=== PATIENT | male | born 1980 | race Caucasian/White ===

== ENCOUNTER 2018-02-20 01:27 | Emergency (ER) | payer SELFPAY ==
[~2018-02-20] VITALS: Ht 177.8 cm; Wt 71.4 kg
[~2018-02-20 01:27] MED LIST: LEVAQUIN 5500 MG/TA1 PO; LORTAB 5/500 501 TAB PO; MECLIZINE25 MG PO; NO HOME MEDICATIONS; PERMETHRIN 5% TOP; PHENERGAN 25 TA25 MG PO; PREDNISONE20 MG PO; PROAIR HFA0.09 MG/AC IH; TUSS PO
[2018-02-20 01:33] VITALS: TEMP 97.1
[2018-02-20 03:20] VITALS: BP 120/95; PULSE 73
== END 2018-02-20 03:20 | disposition home or self-care (01) ==
LOC: COL.ER 01:27
DX: M25.511 Pain in right shoulder (principal); F17.210 Nicotine dependence, cigarettes, uncomplicated; Z88.0 Allergy status to penicillin
CPT/HCPCS: J1885; J2360

== ENCOUNTER 2018-02-27 04:32 | Emergency (ER) | payer SELFPAY ==
[~2018-02-27] VITALS: Ht 177.8 cm; Wt 72.7 kg
[2018-02-27 04:39] VITALS: TEMP 97.3
[2018-02-27] MEDS ORDERED: FLEXERIL 1010 MG/TAB PO (05:51)
[2018-02-27] MEDS ORDERED: MEDROL 4MG DOSPA4 MG PO (05:51)
[2018-02-27 06:16] VITALS: BP 151/106
[2018-02-27 06:31] VITALS: PULSE 70
== END 2018-02-27 06:33 | disposition home or self-care (01) ==
LOC: COL.ER 04:32
DX: M54.12 Radiculopathy, cervical region (principal); F17.210 Nicotine dependence, cigarettes, uncomplicated
CPT/HCPCS: J7512

== ENCOUNTER 2018-07-29 08:50 | Emergency (ER) | payer SELFPAY ==
[~2018-07-29] VITALS: Ht 180.3 cm; Wt 72.7 kg
[~2018-07-29 08:50] MED LIST changes: +FLEXERIL 1010 MG/TAB PO; +MEDROL 4MG DOSPA4 MG PO
[2018-07-29 08:54] VITALS: BP 169/104; PULSE 76; TEMP 98.1
[2018-07-29] MEDS ORDERED: PROAIR HFA0.09 MG/AC IH (09:08)
[2018-07-29] MEDS ORDERED: ZITHROMAX Z PA250 MG PO (09:08)
[2018-07-29] MEDS ORDERED: TESSALON P100 MG/CAP PO (09:08)
== END 2018-07-29 09:30 | disposition home or self-care (01) ==
LOC: COL.ER 08:50
DX: J20.9 Acute bronchitis, unspecified (principal); F17.210 Nicotine dependence, cigarettes, uncomplicated

== ENCOUNTER 2018-09-30 02:01 | Emergency (ER) | payer SELFPAY ==
[~2018-09-30] VITALS: Ht 180.3 cm; Wt 75.5 kg
[~2018-09-30 02:01] MED LIST changes: +TESSALON P100 MG/CAP PO; +ZITHROMAX Z PA250 MG PO
[2018-09-30 02:06] VITALS: TEMP 98.3
[2018-09-30] MEDS ORDERED: TESSALON P100 MG/CAP PO (02:21)
[2018-09-30] MEDS ORDERED: MEDROL 4MG DOSPA4 MG PO (02:21)
[2018-09-30] MEDS ORDERED: ZITHROMAX Z PA250 MG PO (02:21)
[2018-09-30 02:37] VITALS: BP 137/107; PULSE 81
== END 2018-09-30 02:48 | disposition home or self-care (01) ==
LOC: COL.ER 02:01
DX: R05 Cough (principal); F17.210 Nicotine dependence, cigarettes, uncomplicated

== ENCOUNTER 2018-12-22 00:50 | Emergency (ER) | payer SELFPAY ==
[~2018-12-22] VITALS: Ht 180.3 cm; Wt 72.7 kg
[2018-12-22 00:53] VITALS: TEMP 98.5
[2018-12-22 02:21] LABS: BASO % 0.3 % (0.0-2.0); EOS # 0.2 (0.0-0.7); EOS % 2.8 % (0-4.0); GRAN # 4.4 (1.4-6.5); GRAN % 77.6 % (42.2-75.2); HEMATOCRIT 44.2 % (42.0-52.0); HEMOGLOBIN 15.8 g/dl (13.5-18.0); LYMPH # 0.7 (1.2-3.4); LYMPH % 12.2 % (20.0-51.0); MEAN CELL VOLUME 91 fl (80.0-100.0); MEAN CORPUSCULAR HEMOGLOBIN 33 pg (27.0-31.0); MEAN CORPUSCULAR HGB CONC 36 g/dl (33.0-37.0); MEAN PLATELET VOLUME 9.1 fl (7.4-10.4); MONO # 0.4 (0.1-0.6); MONO % 6.8 % (1.7-9.3); PLATELET COUNT 189 K/mm3 (130-400); RED BLOOD COUNT 4.86 M/mm3 (4.20-5.60); REDCELL DISTRIBUTION WIDTH-CV 12.6 % (11.5-14.5)
[2018-12-22 02:32] LABS: ALBUMIN 4.7 gm/dL (3.5-5.0); BILIRUBIN,TOTAL 0.9 mg/dL (0.0-1.0); CALCIUM 9.4 mg/dL (8.4-10.2); CREATININE, serum 0.85 mg/dL (0.66-1.25); POTASSIUM 4.1 mmol/L (3.4-5.0); TOTAL PROTEIN 8.2 gm/dL (6.4-8.2)
[2018-12-22 03:37] VITALS: BP 136/103; PULSE 71
== END 2018-12-22 04:00 | disposition home or self-care (01) ==
LOC: COL.ER 00:50
PROVIDERS: Emergency Medicine
DX: R51 Headache (principal); R19.7 Diarrhea, unspecified; F17.210 Nicotine dependence, cigarettes, uncomplicated
CPT/HCPCS: J1200; J2765; J7030

== ENCOUNTER 2019-01-10 14:26 | Emergency (ER) | payer OTHER ==
[~2019-01-10] VITALS: Ht 180.3 cm; Wt 75.8 kg
[2019-01-10 14:31] VITALS: BP 156/107; TEMP 97.2
[2019-01-10] MEDS ORDERED: PREDNISONE20 MG PO (15:05)
[2019-01-10] MEDS ORDERED: PROAIR HFA0.09 MG/AC IH (15:05)
[2019-01-10] MEDS ORDERED: ZITHROMAX Z PA250 MG PO (15:05)
[2019-01-10 15:46] VITALS: PULSE 78
== END 2019-01-10 15:47 | disposition home or self-care (01) ==
LOC: COL.ER 14:26
DX: J20.9 Acute bronchitis, unspecified (principal); Z88.0 Allergy status to penicillin; F17.210 Nicotine dependence, cigarettes, uncomplicated
CPT/HCPCS: J7512

== ENCOUNTER 2019-07-05 16:34 | Emergency (ER) | payer OTHER ==
[~2019-07-05] VITALS: Ht 180.3 cm; Wt 79.5 kg
[2019-07-05 16:35] VITALS: TEMP 97.9
[2019-07-05 17:08] LABS: BASO % 0.4 % (0.0-2.0); EOS # 0.1 (0.0-0.7); EOS % 1.7 % (0-4.0); GRAN # 4.5 (1.4-6.5); GRAN % 63.3 % (42.2-75.2); HEMATOCRIT 42.4 % (42.0-52.0); HEMOGLOBIN 15.4 g/dl (13.5-18.0); LYMPH # 1.8 (1.2-3.4); LYMPH % 25.4 % (20.0-51.0); MEAN CELL VOLUME 87 fl (80.0-100.0); MEAN CORPUSCULAR HEMOGLOBIN 32 pg (27.0-31.0); MEAN CORPUSCULAR HGB CONC 36 g/dl (33.0-37.0); MEAN PLATELET VOLUME 9.3 fl (7.4-10.4); MONO # 0.6 (0.1-0.6); MONO % 8.9 % (1.7-9.3); PLATELET COUNT 248 K/mm3 (130-400); RED BLOOD COUNT 4.86 M/mm3 (4.20-5.60); REDCELL DISTRIBUTION WIDTH-CV 11.8 % (11.5-14.5)
[2019-07-05 17:23] LABS: ALANINE AMINOTRANSFERASE 17 U/L (21-72); ALBUMIN 4.5 gm/dL (3.5-5.0); ALKALINE PHOSPHATASE 32 U/L (50-136); ANION GAP 10 mmol/L (7-16); AST,SGOT 29 U/L (15-37); BILIRUBIN,TOTAL 0.5 mg/dL (0.0-1.0); BLOOD UREA NITROGEN 10 mg/dL (9-20); CALCIUM 9.2 mg/dL (8.4-10.2); CARBON DIOXIDE 23 mmol/L (22-30); CHLORIDE 108 mmol/L (98-107); CREATININE, serum 0.92 (0.66-1.25); GLUCOSE 107 mg/dL (74-106); LIPASE 149 U/L (23-300); SODIUM 142 mmol/L (137-145); TOTAL PROTEIN 7.6 gm/dL (6.4-8.2)
[2019-07-05 17:24] LABS: C-REACTIVE PROTEIN 0.5 mg/dL (0.0-0.9)
[2019-07-05 17:33] LABS: TROPONIN-I < 0.012 ng/mL (0.000-0.035)
[2019-07-05] MEDS ORDERED: LEVAQUIN 5500 MG/TA1 PO (18:14)
[2019-07-05] MEDS ORDERED: PREDNISONE20 MG PO (18:14)
[2019-07-05 19:05] VITALS: BP 113/86; PULSE 77
== END 2019-07-05 19:05 | disposition home or self-care (01) ==
LOC: COL.ER 16:34
PROVIDERS: Emergency Medicine
DX: J45.901 Unspecified asthma with (acute) exacerbation (principal); J18.1 Lobar pneumonia, unspecified organism; F17.210 Nicotine dependence, cigarettes, uncomplicated; Z88.0 Allergy status to penicillin
CPT/HCPCS: J7030; J7512

== ENCOUNTER 2019-07-11 13:48 | Emergency (ER) | payer OTHER ==
[~2019-07-11] VITALS: Ht 180.3 cm; Wt 77.3 kg
[2019-07-11 14:04] VITALS: TEMP 99
[2019-07-11 15:25] VITALS: BP 123/91; PULSE 70
[2019-07-11] MEDS ORDERED: FLEXERIL 1010 MG/TAB PO (15:31)
== END 2019-07-11 15:39 | disposition home or self-care (01) ==
LOC: COL.ER 13:48
DX: R07.89 Other chest pain (principal); F17.210 Nicotine dependence, cigarettes, uncomplicated

== ENCOUNTER 2019-10-15 08:15 | Emergency (ER) | payer OTHER ==
[~2019-10-15] VITALS: Ht 177.8 cm; Wt 77.3 kg
[2019-10-15 08:36] VITALS: BP 135/94; PULSE 83; TEMP 97.9
[2019-10-15] MEDS ORDERED: PROAIR HFA0.09 MG/AC IH (09:38)
== END 2019-10-15 09:56 | disposition home or self-care (01) ==
LOC: COL.ER 08:15
DX: J11.1 Influenza due to unidentified influenza virus with other respiratory manifestations (principal); J45.909 Unspecified asthma, uncomplicated; F17.210 Nicotine dependence, cigarettes, uncomplicated

== ENCOUNTER 2021-02-08 08:44 | Emergency (ER) | payer BC ==
[~2021-02-08] VITALS: Ht 180.3 cm; Wt 73.6 kg
[2021-02-08 08:53] VITALS: TEMP 98
[2021-02-08] MEDS ORDERED: NORCO 325 MG-51 TAB PO (10:59)
[2021-02-08 11:15] VITALS: BP 151/105; PULSE 89
== END 2021-02-08 11:16 | disposition home or self-care (01) ==
LOC: COL.ER 08:44
DX: S22.42XA Multiple fractures of ribs, left side, initial encounter for closed fracture (principal); F17.210 Nicotine dependence, cigarettes, uncomplicated; Z88.0 Allergy status to penicillin; W51.XXXA Accidental striking against or bumped into by another person, initial encounter

== ENCOUNTER 2021-05-06 04:47 | Emergency (ER) | payer BC ==
[~2021-05-06] VITALS: Ht 180.3 cm; Wt 71.8 kg
[~2021-05-06 04:47] MED LIST changes: +NORCO 325 MG-51 TAB PO
[2021-05-06 04:54] VITALS: TEMP 98.7
[2021-05-06 05:15] LABS: BASO % 0.4 % (0.0-2.0); EOS # 0.1 (0.0-0.7); EOS % 1.8 % (0-4.0); GRAN # 4.4 (1.4-6.5); HEMATOCRIT 41.2 % (42.0-52.0); HEMOGLOBIN 14.4 g/dl (13.5-18.0); LYMPH # 1.6 (1.2-3.4); MEAN CELL VOLUME 89 fl (80.0-100.0); MEAN CORPUSCULAR HEMOGLOBIN 31 pg (27.0-31.0); MEAN CORPUSCULAR HGB CONC 35 g/dl (33.0-37.0); MEAN PLATELET VOLUME 9.3 fl (7.4-10.4); MONO # 0.7 (0.1-0.6); MONO % 10.1 % (1.7-9.3); PLATELET COUNT 288 K/mm3 (130-400); RED BLOOD COUNT 4.61 M/mm3 (4.20-5.60); REDCELL DISTRIBUTION WIDTH-CV 11.3 % (11.5-14.5)
[2021-05-06 05:21] LABS: ALBUMIN 4.3 gm/dL (3.5-5.0); BILIRUBIN,TOTAL 0.4 mg/dL (0.0-1.0); CALCIUM 9.6 mg/dL (8.4-10.2); CREATININE, serum 0.7 (0.66-1.25); POTASSIUM 3.8 mmol/L (3.4-5.0)
[2021-05-06] MEDS ORDERED: PROVENTIL0.09 MG/A1 IH (08:01)
[2021-05-06] MEDS ORDERED: BACTROBAN 22GM22 GM TP (08:01)
[2021-05-06] MEDS ORDERED: MUCINEX 60600 MG/TA1 PO (08:01)
[2021-05-06] MEDS ORDERED: ZITHROMAX Z PA250 MG PO (08:01)
[2021-05-06] MEDS ORDERED: PREDNISONE20 MG PO (08:01)
[2021-05-06 08:15] VITALS: BP 142/96; PULSE 92
== END 2021-05-06 08:15 | disposition home or self-care (01) ==
LOC: COL.ER 04:47
PROVIDERS: Emergency Medicine
DX: R05 Cough (principal); R06.02 Shortness of breath; R06.2 Wheezing; M79.10 Myalgia, unspecified site; Z72.0 Tobacco use; Z20.822 Contact with and (suspected) exposure to COVID-19
CPT/HCPCS: J1100; J7030

== ENCOUNTER 2021-07-23 10:48 | Outpatient (RCR) | payer OTHER ==
[~2021-07-23 10:48] MED LIST changes: +BACTROBAN 22GM22 GM TP; +MUCINEX 60600 MG/TA1 PO; +PROVENTIL0.09 MG/A1 IH
== END 2021-10-15 | disposition home or self-care (01) ==
LOC: WSOH
DX: M65.4 Radial styloid tenosynovitis [de Quervain] (principal); F17.210 Nicotine dependence, cigarettes, uncomplicated; Y99.0 Civilian activity done for income or pay
CPT/HCPCS: A6549; J1030

== ENCOUNTER 2021-10-20 05:33 | Emergency (ER) | payer BC ==
[~2021-10-20] VITALS: Ht 180.3 cm; Wt 64.5 kg
[2021-10-20 05:38] VITALS: TEMP 98.1
[2021-10-20 06:50] VITALS: BP 158/99; PULSE 90
== END 2021-10-20 06:50 | disposition home or self-care (01) ==
LOC: COL.ER 05:33
DX: B34.9 Viral infection, unspecified (principal); J44.9 Chronic obstructive pulmonary disease, unspecified; F17.210 Nicotine dependence, cigarettes, uncomplicated; Z20.822 Contact with and (suspected) exposure to COVID-19; Z88.0 Allergy status to penicillin; Z79.899 Other long term (current) drug therapy; Z79.52 Long term (current) use of systemic steroids

== ENCOUNTER 2022-03-12 06:57 | Emergency (ER) | payer BC ==
[~2022-03-12] VITALS: Ht 180.3 cm; Wt 73.6 kg
[2022-03-12 07:02] VITALS: TEMP 98.9
[2022-03-12 07:58] LABS: BASO % 0.2 % (0.0-2.0); EOS % 0.4 % (0.0-4.0); GRAN # 7.7 K/mm3 (1.4-6.5); GRAN % 83.4 % (42.2-75.2); HEMATOCRIT 41.8 % (42.0-52.0); HEMOGLOBIN 14.6 g/dl (13.5-18.0); LYMPH # 0.6 K/mm3 (1.2-3.4); LYMPH % 6.9 % (20.0-51.0); MEAN CELL VOLUME 88 fl (80.0-100.0); MEAN CORPUSCULAR HEMOGLOBIN 31 pg (27-31); MEAN CORPUSCULAR HGB CONC 35 g/dl (33.0-37.0); MEAN PLATELET VOLUME 9.5 fl (7.4-10.4); MONO # 0.8 K/mm3 (0.1-0.6); MONO % 8.8 % (1.7-9.3); PLATELET COUNT 232 K/mm3 (130-400); RED BLOOD COUNT 4.73 M/mm3 (4.20-5.60); REDCELL DISTRIBUTION WIDTH-CV 11.5 % (11.5-14.5)
[2022-03-12 08:15] LABS: ALBUMIN 3.5 gm/dL (3.5-5.0); BILIRUBIN,TOTAL 0.7 mg/dL (0.2-1.2); CREATININE, serum 0.8 mg/dL (0.72-1.25); POTASSIUM 3.7 mmol/L (3.5-4.5)
[2022-03-12] MEDS ORDERED: ZOFRAN ODT4 MG PO (08:42)
[2022-03-12] MEDS ORDERED: HCTZ 25MG TAB25 MG PO (08:47)
[2022-03-12 08:48] VITALS: BP 138/90; PULSE 79
== END 2022-03-12 08:50 | disposition home or self-care (01) ==
LOC: COL.ER 06:57
PROVIDERS: Family Medicine
DX: U07.1 COVID-19 (principal); I10 Essential (primary) hypertension; R00.0 Tachycardia, unspecified; Z28.311 Partially vaccinated for COVID-19
CPT/HCPCS: J2405; J7120

== ENCOUNTER 2022-03-15 12:22 | Emergency (ER) | payer BC ==
[~2022-03-15] VITALS: Ht 180.3 cm; Wt 74.1 kg
[~2022-03-15 12:22] MED LIST changes: +HCTZ 25MG TAB25 MG PO; +ZOFRAN ODT4 MG PO
[2022-03-15 13:34] LABS: HEMATOCRIT 42.3 % (42.0-52.0); HEMOGLOBIN 15.2 g/dl (13.5-18.0); MEAN CELL VOLUME 85 fl (80.0-100.0); MEAN CORPUSCULAR HEMOGLOBIN 31 pg (27-31); MEAN CORPUSCULAR HGB CONC 36 g/dl (33.0-37.0); MEAN PLATELET VOLUME 9.3 fl (7.4-10.4); PLATELET COUNT 306 K/mm3 (130-400); RED BLOOD COUNT 4.97 M/mm3 (4.20-5.60); REDCELL DISTRIBUTION WIDTH-CV 11.4 % (11.5-14.5)
[2022-03-15 13:50] LABS: COLLECTION METHOD CLEAN CATCH
[2022-03-15 13:52] LABS: ALBUMIN 3.4 gm/dL (3.5-5.0); BILIRUBIN,TOTAL 0.4 mg/dL (0.2-1.2); CREATININE, serum 1.09 mg/dL (0.72-1.25); POTASSIUM 3.5 mmol/L (3.5-4.5); TOTAL PROTEIN 8.7 gm/dL (6.2-8.1)
[2022-03-15 13:58] LABS: BAND 9 % (0-10); LYMPHOCYTE 17 % (20.0-51.0); NEUTROPHILS 64 % (42.0-75.2); PLATELET ESTIMATE NORMAL (NORMAL)
[2022-03-15 14:06] LABS: MUCOUS Present (NOT PRESENT); PH 5 (5-8); SQUAMOUS EPITHELIAL 0-2 /hpf (0-10); URINE APPEARANCE Hazy (CLEAR/HAZY); URINE BACTERIA None Seen /hpf (NONE SEEN); URINE BILIRUBIN Negative (NEGATIVE); URINE BLOOD Negative (NEGATIVE); URINE COLOR Yellow (YELLOW); URINE GLUCOSE Negative (NEGATIVE); URINE KETONE Trace (NEGATIVE); URINE LEUKOCYTE ESTERASE Negative (NEGATIVE); URINE NITRATE Negative (NEGATIVE); URINE PROTEIN(semi-quant) 2+ (NEGATIVE); URINE RBC 0-2 /hpf (0-2); URINE UROBILINOGEN Negative (NEGATIVE)
[2022-03-15 14:30] VITALS: TEMP 98.4
[2022-03-15 15:14] VITALS: BP 138/98; PULSE 79
== END 2022-03-15 15:15 | disposition home or self-care (01) ==
LOC: COL.ER 12:22
PROVIDERS: Nurse Practitioner Primary Care
DX: U07.1 COVID-19 (principal); F17.210 Nicotine dependence, cigarettes, uncomplicated; Z28.310 Unvaccinated for COVID-19
CPT/HCPCS: J1885; J2405; J7030